=== PATIENT | male | born 1990 | race Two or more races ===

== ENCOUNTER 2017-10-07 06:47 | Outpatient (CLI) | payer OTHER ==
[~2017-10-07 06:47] MED LIST: DOLOGEN CAPLET1 EACH PO; GILPHEX TR TAB1 EACH PO; KETO10TA2 PO; MEDROL4 MG PO; NASONEX17 GM NS
== END 2017-10-07 07:01 | disposition home or self-care (01) ==
LOC: LAB 06:47
DX: R51 Headache (principal); R42 Dizziness and giddiness; Z11.3 Encounter for screening for infections with a predominantly sexual mode of transmission

== ENCOUNTER → 2018-12-20 06:23 | Outpatient (CLI) | payer OTHER | END | disposition home or self-care (01) | LOC: LAB 06:23 | DX: Z00.00 Encounter for general adult medical examination without abnormal findings (principal); E78.5 Hyperlipidemia, unspecified; E55.9 Vitamin D deficiency, unspecified; R42 Dizziness and giddiness ==

== ENCOUNTER → 2019-04-15 06:26 | Outpatient (CLI) | payer OTHER | END | disposition home or self-care (01) | LOC: LAB 06:26 | DX: M83.8 Other adult osteomalacia (principal); E78.2 Mixed hyperlipidemia; E03.8 Other specified hypothyroidism; E04.1 Nontoxic single thyroid nodule ==

== ENCOUNTER 2019-06-27 16:41 | Outpatient (CLI) | payer OTHER | END 2019-06-27 17:01 | disposition home or self-care (01) | LOC: SONOGRAMA 16:41 | DX: E03.8 Other specified hypothyroidism (principal) ==

== ENCOUNTER → 2019-10-06 | Outpatient (CLI) | payer OTHER | END | disposition home or self-care (01) | LOC: RAD 16:12 | PROVIDERS: ATTEND General Practice | DX: M54.5 Low back pain (principal); S13.9XXA Sprain of joints and ligaments of unspecified parts of neck, initial encounter ==

== ENCOUNTER 2020-01-06 05:00 | Outpatient (CLI) | payer OTHER | END 2020-01-06 15:50 | disposition home or self-care (01) | LOC: PPH VACUNA 05:00 | DX: Z23 Encounter for immunization (principal) ==

== ENCOUNTER 2020-01-18 06:37 | Outpatient (CLI) | payer OTHER | END 2020-01-18 06:50 | disposition home or self-care (01) | LOC: LAB 06:37 | PROVIDERS: ATTEND Internal Medicine | DX: J06.9 Acute upper respiratory infection, unspecified (principal); I10 Essential (primary) hypertension; E03.1 Congenital hypothyroidism without goiter; E78.00 Pure hypercholesterolemia, unspecified; E55.0 Rickets, active; N39.0 Urinary tract infection, site not specified ==

== ENCOUNTER 2020-04-03 08:56 | Outpatient (CLI) | payer OTHER | END 2020-04-03 15:00 | disposition home or self-care (01) | LOC: PPH VACUNA 08:56 | DX: Z23 Encounter for immunization (principal) ==

== ENCOUNTER 2021-01-14 08:00 | Outpatient (CLI) | payer OTHER | END 2021-01-14 08:30 | disposition home or self-care (01) | LOC: PPH VACUNA 08:00 | PROVIDERS: ATTEND Emergency Medicine Pediatric Emergency Medicine | DX: Z23 Encounter for immunization (principal) ==

== ENCOUNTER → 2021-04-30 07:43 | Outpatient (CLI) | payer OTHER | END | disposition home or self-care (01) | LOC: LAB 07:43 | PROVIDERS: ATTEND Emergency Medicine Pediatric Emergency Medicine | DX: Z20.828 Contact with and (suspected) exposure to other viral communicable diseases (principal) ==

== ENCOUNTER 2021-08-29 08:53 | Emergency (ER) | payer OTHER ==
[~2021-08-29] VITALS: Ht 167.6 cm; Wt 99.3 kg
[2021-08-29] MEDS ORDERED: SKELAXIN800 MG PO (11:33)
[2021-08-29] MEDS ORDERED: CELEBREX200MG PO (11:33)
== END 2021-08-29 13:02 | disposition home or self-care (01) ==
LOC: ER 08:53
DX: S20.219A Contusion of unspecified front wall of thorax, initial encounter (principal); S40.012A Contusion of left shoulder, initial encounter; S40.011A Contusion of right shoulder, initial encounter; S80.02XA Contusion of left knee, initial encounter; S80.01XA Contusion of right knee, initial encounter; S10.83XA Contusion of other specified part of neck, initial encounter; S30.0XXA Contusion of lower back and pelvis, initial encounter; S00.83XA Contusion of other part of head, initial encounter; V43.52XA Car driver injured in collision with other type car in traffic accident, initial encounter; W22.11XA Striking against or struck by driver side automobile airbag, initial encounter; Y92.488 Other paved roadways as the place of occurrence of the external cause; Y93.89 Activity, other specified

== ENCOUNTER 2022-01-08 08:00 | Outpatient (CLI) | payer OTHER ==
[~2022-01-08 08:00] MED LIST changes: +CELEBREX200MG PO; +SKELAXIN800 MG PO
== END 2022-01-08 08:05 | disposition home or self-care (01) ==
LOC: PPH VACUNA 08:00
PROVIDERS: ATTEND Emergency Medicine Pediatric Emergency Medicine
DX: Z23 Encounter for immunization (principal)

== ENCOUNTER 2022-01-30 07:04 | Outpatient (CLI) | payer OTHER | END 2022-01-30 14:29 | disposition home or self-care (01) | LOC: LAB 07:04 | PROVIDERS: ATTEND Internal Medicine | DX: E55.9 Vitamin D deficiency, unspecified (principal); Z13.29 Encounter for screening for other suspected endocrine disorder; Z13.0 Encounter for screening for diseases of the blood and blood-forming organs and certain disorders involving the immune mechanism ==

== ENCOUNTER 2022-04-18 12:37 | Outpatient (CLI) | payer OTHER | END 2022-04-18 12:47 | disposition home or self-care (01) | LOC: PPH VACUNA 12:37 | PROVIDERS: ATTEND Emergency Medicine Pediatric Emergency Medicine | DX: Z23 Encounter for immunization (principal) ==

== ENCOUNTER → 2022-07-18 06:12 | Outpatient (CLI) | payer OTHER | END | disposition home or self-care (01) | LOC: LAB 06:12 | PROVIDERS: ATTEND Internal Medicine | DX: Z13.1 Encounter for screening for diabetes mellitus (principal); Z13.29 Encounter for screening for other suspected endocrine disorder; R73.9 Hyperglycemia, unspecified; Z12.11 Encounter for screening for malignant neoplasm of colon; Z13.220 Encounter for screening for lipoid disorders; E55.9 Vitamin D deficiency, unspecified; Z12.5 Encounter for screening for malignant neoplasm of prostate ==

== ENCOUNTER 2022-12-26 08:45 | Outpatient (CLI) | payer OTHER | END 2022-12-26 08:55 | disposition home or self-care (01) | LOC: PPH VACUNA 08:45 | PROVIDERS: ATTEND Emergency Medicine Pediatric Emergency Medicine | DX: Z23 Encounter for immunization (principal) ==